=== PATIENT | female | born 1970 | race Caucasian/White ===

== ENCOUNTER 2016-06-29 21:49 | Emergency (ER) | payer OTHER ==
[~2016-06-29] VITALS: Ht 167.6 cm; Wt 61.2 kg
[2016-06-29 21:54] VITALS: BP 143/89
[2016-06-29] MEDS ORDERED: CLONAZEPAM0.5 M2 PO (22:07)
--- NOTE | 2016-06-29 22:59 | ED SKIN/ALLERGY COMPLAINT ---
History of Present Illness General Chief Complaint: General Adult Stated Complaint: "HIVES BACK,CHEST LT ARM,SOB,CP X45MIN,HX ANXIETY" Source: patient Exam Limitations: no limitations Vital Signs & Intake/Output Vital Signs & Intake/Output Vital Signs Date Time Temp Pulse Resp B/P Pulse O2 O2 Flow FiO2 Ox Delivery Rate 06/30 0058 98.2 67 20 100 06/29 2216 100 06/29 2154 98.3 109 20 143/89 100 Room Air ED Intake and Output 06/30 0000 06/29 1200 Intake Total Output Total Balance Patient 135 lb Weight Allergies Coded Allergies: No Known Allergies (06/29/16) Reconcile Medications Clonazepam (Unknown Strength) TABLET (Unknown Dose) PO PRN PRN ANXIETY ATTACKS (Reported) Epinephrine (Epipen) 0.3 MG/0.3 ML AUTO.INJCT 0.3 MG IM AD AMAPHYLAXIS Hydroxyzine HCl 50 MG TABLET 1 TAB PO TID ALLERGIC REACTION Prednisone (Deltasone) 20 MG TABLET 1 TAB PO TID ALLERGIC REACTION Triage Note: TRIAGE: PT TO ER WITH C/C HIVES TO TRUNK AND ARMS, 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 NO HX OF ANY ALLERGIES. REPORTS DIFFICULTY BREATHING AND SWALLOWING. TOOK 1 BENADRYL PRIOR TO LEAVING THE HOUSE TO COME TO ER. [facility] Triage Nurses Notes Reviewed? yes Onset: Abrupt Duration: hour(s):, constant Timing: recent history Severity: mild, moderate HPI: 45-year-old female comes into emergency room for further evaluation after getting a diffuse generalized rash since been going on the past couple hours. Patient reports that she was given a toasted marshmallows and the symptoms began shortly after. Itching. Patient reports that she felt like it was difficult to swallow. Denies any tongue swelling. Rash on chest and upper extremities and lower legs. Itching. No prior history of allergic reaction. Denies any other associated symptoms. Past History Travel History Traveled to [place] past 21 day No Medical History Any Pertinent Medical History? see below for history Neurological: NONE EENT: NONE Cardiovascular: NONE Respiratory: NONE Gastrointestinal: NONE Hepatic: NONE Renal: NONE Musculoskeletal: NONE Psychiatric: anxiety Endocrine: NONE Blood Disorders: NONE Cancer(s): NONE CALL OR CONTACT CENTRE COACH/Reproductive: NONE Surgical History Surgical History: non-contributory Psychosocial History What is your primary language Armenian Tobacco Use: Never used ETOH Use: occasional use Illicit Drug Use: denies illicit drug use Family History Hx Contributory? No Review of Systems Review of Systems Constitutional: Reports: no symptoms. EENTM: Reports: no symptoms. Respiratory: Reports: no symptoms. Cardiovascular: Reports: no symptoms. GI: Reports: no symptoms. Genitourinary: Reports: no symptoms. Musculoskeletal: Reports: no symptoms. Skin: Reports: see HPI. Neurological/Psychological: Reports: no symptoms. Hematologic/Endocrine: Reports: no symptoms. Immunologic/Allergic: Reports: no symptoms. All Other Systems: Reviewed and Negative Physical Exam Physical Exam General Appearance: well developed/nourished, mild distress Head: atraumatic Eyes: Bilateral: normal appearance. Ears, Nose, Throat: normal ENT inspection, hearing grossly normal Neck: normal inspection Respiratory: normal breath sounds, no respiratory distress Cardiovascular: regular rate/rhythm Back: normal inspection Extremities: normal inspection, normal range of motion, no edema Neurologic/Psych: awake, alert, oriented x 3, normal mood/affect Skin: intact, rash Skin Problem Location: generalized Skin Problem Character: urticarial Lymphatic: no anterior cervical shell Progress Differential Diagnosis: abscess/cellulitis, allergic reaction, anaphylaxis, angioedema, contact dermatitis, drug reaction, lyme disease, scarlet fever, shingles, syphilis/gonococcemia, toxic shock syndrome, urticaria Plan of Care: Current Medications Sig/Kalin Start time Last Medication Dose Stop Time Status Admin Diphenhydramine HCl 50 MG ONCE ONE 06/29 2299 AC (Benadryl) 06/29 2300 Famotidine 20 MG ONCE ONE 06/29 2299 AC (Pepcid) 06/29 2300 Prednisone 60 MG ONCE ONE 06/29 2299 AC 06/29 2300 Comments: 06/30/2016 1:03:56 AM Patient clinically looks well. Reevaluated multiple times. Rash continues to improve. No signs of angioedema or lip swelling. No rest or symptoms currently. At this time I feel the patient can be observed at home. Patient was offered further observation here in the emergency room but would rather go home. Educated on EpiPen use. Return if any other concerns. Patient lives with family in can be observed at home. Follow-up with primary care doctor. Departure Departure Disposition: HOME OR SELF CARE Condition: Stable Clinical Impression Primary Impression: Allergic reaction Referrals: TJ COLEMAN,MARIBEL Sy (PCP/Family) Additional Instructions: Take prednisone as prescribed. Take hydroxyzine as prescribed. Return if any tongue swelling shortness of breath or any other concerns worsening symptoms. Use EpiPen if any tongue swelling lip swelling or difficulty breathing. This is a last resort. Please go over all results of today's visit with your primary care doctor. Contact your primary care doctor to let them know you were here in the emergency room. There may be nonspecific findings which may not be related to your visit today here in the emergency room but may require further evaluation and chronic monitoring by your primary care doctor. If you had a laceration today the chance of foreign body always remains. You should follow-up with your primary care doctor for recheck in 3-5 days for a wound check. If you had an x-ray done there is a chance that a fracture could have been missed on initial read and you should follow-up with your primary care doctor for repeat x-rays if symptoms persist. If your blood pressure was elevated here in the emergency room please have rechecked by her primary care doctor within the next 48 hours by your primary care doctor. If you were prescribed a narcotic here in the emergency room or any type of controlled substances you're not allowed to drive while taking this medication or operate any type of heavy machinery. Narcotics can make you feel lightheaded dizziness nausea and can cause constipation. You may need to steel pickler a stool softener. Thank you for choosing [facility] emergency room. Please return to the emergency room immediately if you have any other concerns worsening of symptoms. Departure Forms: Customer Survey General Discharge Information Prescriptions: Current Visit Scripts Prednisone (Deltasone) 1 TAB PO TID #12 MG Epinephrine (Epipen) 0.3 MG IM AD #1 PAC Hydroxyzine HCl 1 TAB PO TID #30 TAB
[2016-06-30] MEDS ORDERED: EPIPEN0.3 MG/0.1 IM (00:34)
[2016-06-30] MEDS ORDERED: HYDROXYZINE HCL50 M1 PO (00:34)
[2016-06-30] MEDS ORDERED: DELTASONE20 MG PO (00:34)
== END 2016-06-30 00:59 ==
LOC: ERH 21:49
DX: T78.1XXA Other adverse food reactions, not elsewhere classified, initial encounter (principal); R13.10 Dysphagia, unspecified; L29.9 Pruritus, unspecified; R21 Rash and other nonspecific skin eruption